=== PATIENT | female | born 1985 | race African-American/Black ===

== ENCOUNTER 2020-05-04 12:56 | Emergency (ER) | payer OTHER, SELFPAY ==
[2020-05-04 13:03] VITALS: BP 168/74; PULSE 82; RESP 18; TEMP 36.6; O2SAT 100
[2020-05-04 13:17] LABS: Basophils Absolute Auto 0.1 K/mm3 (0.0-0.1); Basophils Percent Auto 0.6 % (0.2-1.2); Eosinophils Absolute Auto 0.1 K/mm3 (0-0.3); Eosinophils Percent Auto 0.6 % (0-4.4); Hematocrit 42.8 % (37.0-47.0); Hemoglobin 12.8 g/dL (12.0-15.0); Immature Granulocyte Absolute 0.03 K/mm3 (0.00-0.031); Immature Granulocyte Percent A 0.3 % (0-0.5); Lymphocytes Percent Auto 30.7 % (18.3-44.2); Mean Corpuscular HGB Conc 29.9 g/dl (32-36); Mean Corpuscular Hemoglobin 22.9 pg (26-34); Mean Corpuscular Volume 76.6 fl (80-100); Mean Platelet Volume 8.4 fl (7.4-10.4); Monocytes Absolute Auto 0.9 K/mm3 (0.1-0.6); Monocytes Percent Auto 7.9 % (2.6-8.5); Neutrophils Percent Auto 59.9 % (45.5-73.1); Platelet Count Result 609 k/mm3 (150-375); Red Blood Count 5.59 M/mm3 (4.2-5.4); Red Cell Distribution Width 29.2 % (11.5-14.5); White Blood Count 11.7 K/mm3 (4.5-10.0)
[2020-05-04 13:25] LABS: Acanthocytes 1+ (NORMAL); Hypochromasia 1+ (NORMAL); Platelet Estimate Adequate (Adequate); Poikilocytosis 1+ (NORMAL); Target Cells 1+ (NORMAL)
--- NOTE | 2020-05-04 13:29 | ED.GENADULT ---
HPI - General Adult General Chief complaint: Recheck/Abnormal Lab/Rx Stated complaint: Wants Blood Draw, Iron levels Time Seen by Provider: 05/04/20 13:12 Source: RN notes reviewed History of Present Illness HPI narrative: Patient presents emergency room from home for hemoglobin recheck. Patient states that she was diagnosed with Covid back in November and following that she had had some abnormal blood results testing including a hemoglobin down in the sevens. States she is regularly followed by hematology for history of thrombocytosis. She states she is scheduled to see him again on the to become worried with her levels being low she denies having any fever chills chest pain shortness of breath abdominal pain nausea vomiting or any other symptoms Related Data Allergies Allergy/AdvReac Type Severity Reaction Status Date / Time morphine Allergy Stopped Verified 05/04/20 13:07 Breathing Sulfa (Sulfonamide Allergy Hives Verified 05/04/20 13:07 Antibiotics) sulfamethoxazole AdvReac Hives Verified 05/04/20 13:07 [From Bactrim] trimethoprim [From Bactrim] AdvReac Hives Verified 05/04/20 13:07 Review of Systems Review of Systems: Narrative: Gen.: Denies fevers or chills ENT: Denies congestion Respiratory: Denies shortness of breath or cough CV: Denies chest pain or palpitations GI: Denies abdominal pain nausea, emesis or diarrhea Musculoskeletal: Denies back pain or muscle pain Neuro: Denies numbness, tingling, weakness or focal weakness Skin: Denies rash Except as documented, all other systems reviewed and negative PMFSH Past Medical History Medical History (Updated 05/04/20 @ 13:32 by Dakota Penaloza DO) Thrombocytosis Social History Social History (Updated 05/04/20 @ 13:31 by Dakota Penaloza DO) Smoking status: Never smoker Exam Narrative: Exam Narrative: APPEARANCE: No acute distress, nontoxic, resting in bed EYES: EOMI HEENT: Normocephalic, atraumatic, RESPIRATORY: No respiratory distress Clear to auscultation bilaterally with no rhonchi wheezing or rales. CARDIOVASCULAR: Regular rate and rhythm without murmurs rubs or gallops. ABDOMINAL: Soft, nontender, nondistended, no rebound or guarding MUSCULOSKELETAl: Moves all extremities. No clubbing, cyanosis or edema. NEURO: Awake and alert. Following commands, speech normal, no focal deficits SKIN:: Warm, dry. No rashes lesions or abrasions PSYCHIATRIC: Normal affect/mood, Course Course Emergency Course: Discussed with patient results of workup and diagnosis. Discussed need for follow-up with primary care, proper use of medication, and reasons to return to the emergency department. Patient understands and agrees to current treatment plan Vital Signs Vital signs: Vital Signs Temperature 97.9 F 05/04/20 13:03 Pulse Rate 82 05/04/20 13:03 Respiratory Rate 18 05/04/20 13:03 Blood Pressure 168/74 H 05/04/20 13:03 Pulse Oximetry 100 05/04/20 13:03 Temperature 97.9 F 05/04/20 13:03 Pulse Rate 82 05/04/20 13:03 Respiratory Rate 18 05/04/20 13:03 Blood Pressure 168/74 H 05/04/20 13:03 Pulse Oximetry 100 05/04/20 13:03 Medical Decision Making Vital Signs Vital Signs: Vital Signs Temperature 97.9 F 05/04/20 13:03 Pulse Rate 82 05/04/20 13:03 Respiratory Rate 18 05/04/20 13:03 Blood Pressure 168/74 H 05/04/20 13:03 Pulse Oximetry 100 05/04/20 13:03 Temperature 97.9 F 05/04/20 13:03 Pulse Rate 82 05/04/20 13:03 Respiratory Rate 18 05/04/20 13:03 Blood Pressure 168/74 H 05/04/20 13:03 Pulse Oximetry 100 05/04/20 13:03 Lab Data Result diagrams: 05/04/20 13:12 Labs: Lab Results 05/04/20 Range/Units 13:12 WBC 11.7 H (4.5-10.0) K/mm3 RBC 5.59 H (4.2-5.4) M/mm3 Hgb 12.8 (12.0-15.0) g/dL Hct 42.8 (37.0-47.0) % MCV 76.6 L (80-100) fl MCH 22.9 L (26-34) pg MCHC 29.9 L (32-36) g/dl RDW 29.2 H (11.5-14.5) % Plt Count 609
== END 2020-05-04 13:47 | disposition home or self-care (01) ==
LOC: ANHED 13:43
PROVIDERS: Physician Assistant; Emergency Provider Emergency Medicine
DX: D47.3 Essential (hemorrhagic) thrombocythemia (principal)
CPT/HCPCS: 36415; 85025; 86850; 86900; 86901; 99283